=== PATIENT | female | born 1985 | race Caucasian/White ===

== ENCOUNTER → 2019-11-28 07:18 | Outpatient (CLI) | payer OTHER, SELFPAY ==
--- NOTE | ~2019-11-28 | MR_ITS ---
EXAMINATION: MR brain/brain stem wo con DATE: 11/28/2019 07:55 INDICATION: Migraine headache. Flash of light in right eye. TECHNIQUE: Magnetic resonance imaging (MRI) of the brain and brainstem was performed without intraven ous contrast. Sequences included sagittal and axial T1-weighted FSE, axial diffusion-weighted FS EPI, axial T2*-weighted GRE, axial T2-weighted FLAIR Propeller, and axial T2-weighted Propeller. Apparent diffusion coefficient (ADC) maps were created. COMPARISON: Head CTA 03/08/2019 FINDINGS: There is no intracranial hemorrhage, acute infarction, or abnormal intracranial mass lesion . The ventricles are normal in size. The mastoid air cells are normal. The orbits are normal. The par anasal sinuses are clear. IMPRESSION: 1. Normal brain. Reviewed, dictated and finalized at location A. [facility] [employer] IMPRESSION: 1. Normal brain.
== END ==
PROVIDERS: PCP Psychiatry & Neurology Neurology; Visit Provider Psychiatry & Neurology Neurology
DX: G43.909 Migraine, unspecified, not intractable, without status migrainosus (principal)
CPT/HCPCS: 70551

== ENCOUNTER 2019-12-16 09:03 | Outpatient (CLI) | payer OTHER, SELFPAY ==
--- NOTE | 2019-12-16 10:00 | NEURO_ITS ---
TEST: ELECTROENCEPHALOGRAM DIAGNOSIS: MIGRAINES PATIENT NUMBER: [id number] EEG NUMBER: [id number] RECORDING DATE: 12/16/19 CLINICAL HISTORY: Patient reports she is seeing lights and lines in her vision. CONDITION OF RECORDING: Awake, drowsy and sleep EEG DESCRIPTION: Basic resting occipital frequency consists of moderate amount of fairly well organized low voltage 8-10hz alpha mixed with low voltage 15-18hz beta. During drowsiness low voltage beta activity is seen diffusely mixed with waxing and waning posterior alpha rhythms. Bilateral symmetrical sleep activity is seen during sleep. Photic stimulation produced normal drive. Hyperventilation produced normal and symmetrical build-up. Nonparoxysmal. Nonfocal. Nonlateralizing. IMPRESSION: No significant abnormalities noted. MTDD
== END 2019-12-16 09:04 | disposition home or self-care (01) ==
PROVIDERS: PCP Psychiatry & Neurology Neurology; Visit Provider Psychiatry & Neurology Neurology
DX: G43.909 Migraine, unspecified, not intractable, without status migrainosus (principal)
CPT/HCPCS: 95816

== ENCOUNTER 2021-08-21 08:44 | Outpatient (CLI) | payer OTHER, SELFPAY ==
[2021-08-21 09:17] LABS: Hematocrit 36.3 % (37.0-47.0); Hemoglobin 12.6 g/dL (12.0-15.0); Mean Corpuscular HGB Conc 34.7 g/dl (32-36); Mean Corpuscular Hemoglobin 33.2 pg (26-34); Mean Corpuscular Volume 95.8 fl (80-100); Mean Platelet Volume 10.1 fl (7.4-10.4); Platelet Count Result 186 k/mm3 (150-375); Red Blood Count 3.79 M/mm3 (4.2-5.4); Red Cell Distribution Width 12.3 % (11.5-14.5)
[2021-08-23 09:39] LABS: Rapid Plasma Reagin Non-Reactive (NonReactive)
== END 2021-08-21 08:45 | disposition home or self-care (01) ==
LOC: ANHLAB 08:51
PROVIDERS: Visit Provider Obstetrics & Gynecology
DX: Z34.93 Encounter for supervision of normal pregnancy, unspecified, third trimester (principal); Z3A.00 Weeks of gestation of pregnancy not specified
CPT/HCPCS: 36415; 85027; 86592; 86850; 86900; 86901

== ENCOUNTER 2021-08-23 05:38 | Inpatient (IN) | payer OTHER, SELFPAY ==
--- NOTE | 2021-07-27 13:04 | PC.NURSE ---
VERIFIED WITH OR SCHEDULE AND PATIENT --C/S WITH TUBLA LIGATION ON 08/23/21 AT 0730 PATIENT GIVEN REQUISITION FOR PRE-OP LABS ON 08/21/21
[2021-08-23] VITALS (64 sets, daily range): BP systolic 70–128; BP diastolic 41–88; PULSE 50–110; RESP 12–18; TEMP 36.2–37.3; O2SAT 98–100; BMI 25.5
--- NOTE | 2021-08-23 07:10 | WPDANESEPPF ---
Anes - Initial Pre Proc Eval Procedure: Operation Date: 08/23/21 07:30 Proposed Procedures p Primary Section with Bilateral Tubal Ligation - April Buckley MD Date/Time: 08/23/21 07:10 Surgeon: April Buckley MD Pre Op Diagnosis: c/s Patient Data Age: 36 Gender: F Height: 1.7 m Weight: 74 kg Last Vital Signs Pulse 80 08/23/21 06:30 BP 70/41 L 08/23/21 06:30 Pulse Ox 100 08/23/21 06:38 Allergies Allergy/AdvReac Type Severity Reaction Status Date / Time No Known Allergies Allergy Verified 07/27/21 12:53 Patient hx anesthesia problems: none Family hx anesthesia problems: none Results Review: All pre-operative results and documents have been reviewed as part of the pre-operative evaluation. [facility] Past Medical History Medical History (Updated 08/23/21 @ 07:11 by Vincent Cr MD) Anxiety Polyhydramnios Surgical History Surgical History (Updated 08/23/21 @ 07:11 by Vincent Cr MD) History of D&C Family History Family History Other No pertinent family history Social History Social History Smoking status: Never smoker Substance use: never Spiritual care concerns: No Anes - Eval Final PreProcedure Day of Procedure 08/23/21 07:10 Patient weight: normal Heart: regular rate and rhythm Lungs: clear to auscultation Airway: Mallampati scale class 1 Neurological: alert and oriented Last oral intake: >/= 8 hours ASA classification: II Emergent: no Anesthetic plan: proceed Anesthesia type and monitoring: regional spinal and standard monitoring Results Review: All pre-operative results and documents have been reviewed as part of the pre-operative evaluation. Informed Consent: The patient's anesthetic plan and its attendant risks and benefits were discussed with the patient/family/POA. Questions were solicited and answers provided to the satisfaction of the patient/family/POA.
--- NOTE | 2021-08-23 07:14 | PM.IMHP ---
H&P: HPI History of Present Illness Date/Time: 08/23/21 07:14 Chief Complaint: primary CS Narrative: Maryuri is a 36yo at 39w for primary CS for h/o HSV with severe anxiety last related to a vaginal delivery. She has decided not to do a tubal today. also complicated by polyhydramnios and anxiety on lexapro. Started her valtrex just last week. Review of Systems Review of Systems: All systems reviewed & are unremarkable except as noted in HPI and below PMFSH Past Medical History Medical History (Updated 08/23/21 @ 07:11 by Vincent Cr MD) Anxiety Polyhydramnios Surgical History Surgical History (Updated 08/23/21 @ 07:11 by Vincent Cr MD) History of D&C Family History Family History Other No pertinent family history Social History Social History Smoking status: Never smoker Substance use: never Spiritual care concerns: No Meds Home Medications and Allergies Allergies Allergy/AdvReac Type Severity Reaction Status Date / Time No Known Allergies Allergy Verified 07/27/21 12:53 Vital Signs Vital Signs - 24 hr 08/23/21 05:58 08/23/21 06:03 08/23/21 06:08 Pulse Rate Blood Pressure Pulse Oximetry 100 100 100 08/23/21 06:13 08/23/21 06:18 08/23/21 06:23 Pulse Rate Blood Pressure Pulse Oximetry 100 100 99 08/23/21 06:28 08/23/21 06:30 08/23/21 06:33 Pulse Rate 80 Blood Pressure 70/41 L Pulse Oximetry 100 98 08/23/21 06:38 Pulse Rate Blood Pressure Pulse Oximetry 100 Exam Const: General: no acute distress Resp: Effort & Inspection: normal respiratory effort Auscultation: clear to auscultation bilaterally Cardio: Rate: regular rate Rhythm: regular rhythm GI: GI Palp: Yes Soft to palpation Extrem: General: normal to inspection Assessment and Plan Additional Plan Plan primary CS for h/o HSV2 and maternal anxiety re vaginal delivery Discussed RBA, pt consented, all questions answered. NO tubal today. will proceed.
[2021-08-23] MEDS: ceFAZolin 2 GM/D5W 50 ML 2 GM/50 ML BAG IVPB (07:23)
--- NOTE | 2021-08-23 08:22 | P.PCNOB_ITS ---
OB - Delivery Note Procedure Procedure: Procedures Operation Date: 08/23/21 07:30 <No data on this case meets the specified criteria> Primary Low Transverse Section Route of delivery: Specimen: Yes (placenta) Anesthesia type: Epidural Disposition: floor Complications: none Narrative: The patient was taken to the OR and had her epidural anesthesia dosed adequately. She was placed in dorsal supine position with left lateral tilt. SCDs and cui had been placed. She was prepped and draped in the normal sterile fashion. A Pfannensteil skin incision was made and carried through to the underlying layer of fascia. The fascia was incised in the midline and then extended laterally using Alanis scissors. The muscles were in the midline and the peritoneum was entered bluntly. The peritoneal incision was extended inferiorly and superiorly with care to avoid the bladder. The bladder blade was then inserted, the vesicouterine peritoneum was grasped, incised with Metzenbaum scissors, and a bladder flap created. The bladder blade was reinserted. A low transverse uterine incision was made with a scalpel and extended bluntly. AROM was performed and fluid was noted to be clear. The head was delivered, followed by the remainder of the baby. The baby's oropharynx was suctioned. After 30 seconds, the cord was clamped and cut and the infant was handed off. Cord blood was obtained and the placenta was then removed manually. The uterus was exteriorized. A moist lap sponge was used to curette the endometrium. The uterine incision was then closed with one layer of 0-Vicryl in a running, locking fashion. Good hemostasis was noted. The posterior cul de sac was irrigated with normal saline and cleared of all clot and debris. The uterus was returned to the abdomen. Both lateral gutters were then irrigated. The rectus muscles were inspected and found to be hemostatic. The fascia was reapproximated using 0-Vicryl in running fashion. The subcutaneous tissue was irrigated with normal saline and made hemostatic with Bovie electrocautery. The skin was then closed with absorbable gina. Steri strips and a bandage were applied. The uterus was evacuated. The patient tolerated the procedure very well. All counts were correct. She was taken to the recovery room in good condition. [place] Baby Weeks of gestation at delivery: 39
--- NOTE | 2021-08-23 11:02 | PC.NURSE ---
Patient transferred to post room #281 per stretcher from labor and delivery. Support person present. Oriented to unit, room, information board, rooming in, admission packet and security measures. Patient verbalizes understanding.
[2021-08-23] MEDS: DEXTROSE 5%/0.45% SOD CHL 1,000 ML 125 ML IV CONT (11:30)
[2021-08-23] MEDS: KETOROLAC 30 MG/ML VIAL (*BKC) IV PUSH (13:59)
[2021-08-23] MEDS: HYDROcodone/acetaminophen (*CRX) 5-325 MG TABLET 1 TAB PO (17:23)
[2021-08-23] MEDS: ESCITALOPRAM OXALATE 10 MG TABLET 20 MG PO (21:15)
[2021-08-24 00:06] VITALS: PULSE 75; RESP 15; O2SAT 100
[2021-08-24 03:26] VITALS: PULSE 87; RESP 14; O2SAT 99
[2021-08-24] MEDS: IBUPROFEN 600 MG TABLET PO ×3 (03:26→20:38)
[2021-08-24] MEDS: HYDROcodone/acetaminophen (*CRX) 5-325 MG TABLET 1 TAB PO ×4 (03:27→19:28)
[2021-08-24 04:01] LABS: Basophils Percent Auto 0.2 % (0.2-1.2); Eosinophils Percent Auto 0.2 % (0-4.4); Hematocrit 29.5 % (37.0-47.0); Hemoglobin 10.1 g/dL (12.0-15.0); Immature Granulocyte Absolute 0.04 K/mm3 (0.00-0.031); Immature Granulocyte Percent A 0.4 % (0-0.5); Lymphocytes Absolute Auto 1.16 K/mm3 (0.9-3.2); Mean Corpuscular HGB Conc 34.2 g/dl (32-36); Mean Corpuscular Hemoglobin 33.4 pg (26-34); Mean Corpuscular Volume 97.7 fl (80-100); Mean Platelet Volume 10.2 fl (7.4-10.4); Monocytes Absolute Auto 0.5 K/mm3 (0.1-0.6); Monocytes Percent Auto 5.3 % (2.6-8.5); Neutrophils Absolute Auto 7.9 K/mm3 (1.3-6.7); Neutrophils Percent Auto 81.9 % (45.5-73.1); Platelet Count Result 149 k/mm3 (150-375); Red Blood Count 3.02 M/mm3 (4.2-5.4); Red Cell Distribution Width 12.3 % (11.5-14.5); White Blood Count 9.7 K/mm3 (4.5-10.0)
--- NOTE | 2021-08-24 08:01 | P.PNOB_ITS ---
OB - PN: Subj Subjective Date/time seen: 08/24/21 08:01 Patient comments: no complaints, pain well controlled, tolerating diet and flatus present [place] baby status: doing well OB - PN: Obj Data Labs CBC & Chem 7: 08/24/21 03:34 Labs: Laboratory Results - last 24 hr 08/24/21 03:34 WBC 9.7 RBC 3.02 L Hgb 10.1 L Hct 29.5 L MCV 97.7 MCH 33.4 MCHC 34.2 RDW 12.3 Plt Count 149 L MPV 10.2 Immature Gran % (Auto) 0.4 Neut % (Auto) 81.9 H Lymph % (Auto) 12.0 L [place] % (Auto) 5.3 Eos % (Auto) 0.2 Baso % (Auto) 0.2 Lymph # (Auto) 1.16 [place] # (Auto) 0.5 Eos # (Auto) 0.0 Baso # (Auto) 0.0 Abs Immat Gran (auto) 0.04 H Absolute Neuts (auto) 7.9 H Absolute Nucleated RBC 0.0 Nucleated RBC % 0.0 OB - PN A/P Plan day: 1 Plan: routine care Time Spent With Patient Time: Total time spent is greater than 50% in coordination of care (as documented) at patient's floor/unit and/or counseling patient: Time with patient: less than 15 minutes Review of Systems Review of Systems: All systems reviewed & are unremarkable except as noted in HPI and below Exam Narrative: Fundus firm. Vaginal flow controlled. Incision dry and intact. Negative homans. No redness, warmth, or pain of lower ext. Const: General: comfortable Chest: Breast/axilla inspection: normal inspection of the breasts Resp: Effort & Inspection: normal respiratory effort Auscultation: clear to auscultation bilaterally Cardio: Rate: regular rate GI: GI Palp: Yes Soft to palpation Psych: Appearance: grossly normal Affect: normal affect Attitude: cooperative Thought content: Yes Normal thought content present Judgement: Good judgement present (Psych)
--- NOTE | 2021-08-24 09:06 | WPDANLDNPN2 ---
Anes-Prog Note L&D-Neuraxial Date/Time: 08/24/21 09:06 Neuraxial medications: intrathecal PF morphine Opiod-related complaints: none Patient feedback: Patient satisfied with post-operative pain management.
--- NOTE | 2021-08-24 09:06 | WPDANLDPN2 ---
Anes-Prog Note L&D Date/Time: 08/24/21 09:06 Comfortable throughout: section Neuraxial method: spinal Epidural/Spinal procedure site: clean & non-tender Neuro status: Neuro function grossly intact. Cardiovascular status: normal Respiratory status: normal Airway patency: baseline Mental status: baseline Post-Op hydration status: normal Vital Signs: Last Vital Signs Temp 37.3 C 08/23/21 19:10 Pulse 87 08/24/21 03:26 Resp 14 08/24/21 03:26 BP 104/69 08/23/21 19:10 Pulse Ox 99 08/24/21 03:26 Pain score (VAS): 0 I/O: Intake & Output 08/23/21 08/24/21 08/24/21 23:59 07:59 15:59 Intake Total 900 625 Output Total 425 700 Balance 475 -75 Post-procedural complaints: none Patient feedback: Patient satisfied with anesthetic care.
[2021-08-24] MEDS: MULTIVIT/MIN/PREN/FOL AC/IRON TABLET 1 TAB PO (09:21)
[2021-08-24] MEDS: DOCUSATE SODIUM 100 MG CAPSULE PO ×2 (09:21→19:28)
[2021-08-24 09:30] VITALS: BP 118/70; PULSE 96; RESP 18; TEMP 37; O2SAT 100
--- NOTE | 2021-08-24 11:45 | PC.NURSE ---
Mother called out for assist with feeding. Mother reports infant is sleepy at breast needing constant stimulation to keep awake. is able to freely thrust tongue past gum ridge and flange both lips. Skin is intact on both nipples, no redness and bruising noted. Reviewed feeding cues, frequencies, duration of feedings, feeding elimination flow sheet, and signs of adequate intake. Demonstrated stimulation techniques to wake for feeding. Assisted with infant to breast. Reviewed positioning/alignment in cross cradle, holding breast in ?U? hold and guided asymmetrical latch on. Reviewed rational for each. able to latch correctly within a few attempts. Infant nursed sleepily with a few bursts of eager with steady draws and occasional swallowing frequent long pausing noted. Reviewed signs of a correct latch, effective nursing and suck swallow ratio. Suggested mother stimulate while feeding to increase stimulation for milk supply, for increased intake and to assist with maintaining deep latch. Infant would slip to shallow latch causing tenderness. Demonstrated how to adjust latch more deeply while feeding if needed. Mother reports she can feel the difference in latch with less tenderness. Nipple care reviewed of lanolin after feedings, warm compresses as needed. Discussed the difference of effective vs ineffective feeding. Reviewed infant is latching with burst of suckling more sleeping than nursing, he is not feeding consistently with adequate milk transfer at this time and continues to need to be supplement after . Feeding options discussed, Feeding Plan is for mother to put to breast each feeding for up to 15 minutes, then pace feed supplement 20 mls and pump for 10-15 minutes. Parents are comfortable with supplementation and pumping Instructed mother to call out for RN assistance if she is unable to latch infant for feeding or she has discomfort with nursing. Instructed feeding should be initiated three hours from start of last feeding or if feeding cues are noted before. Mother voiced understanding of information shared. Mother states she will begin pumping if does not effectively feed next feeding.
[2021-08-24] MEDS: SIMETHICONE 80 MG TAB.CHEW PO ×2 (14:27→19:28)
--- NOTE | 2021-08-24 14:45 | PC.NURSE ---
Consult with pt., mother wishes to pump due to sleepy . Breast pump provided due to mother's wishes. Instructions given on breast pump care and usage, pumping schedule, nipple care, and collection and storage of breast milk. Encouraged [id number], breast massage and manual expression to stimulate supply. Assessed patient for correct flange size, placement and draw. Patient verbalizes and demonstrates understanding of instructions. Discussed colostrum vs milk supply and mother may not see more than a few drops the first few days, milk should transition in by day 3 and she may see more volume pumped per session.
[2021-08-24] MEDS: ESCITALOPRAM OXALATE 10 MG TABLET 20 MG PO (19:29)
[2021-08-24 19:58] VITALS: BP 102/65; PULSE 65; RESP 18; TEMP 36.8; O2SAT 99
[2021-08-25] MEDS: HYDROcodone/acetaminophen (*CRX) 5-325 MG TABLET 1 TAB PO ×2 (04:54→09:46)
[2021-08-25] MEDS: IBUPROFEN 600 MG TABLET PO ×2 (04:55→11:29)
--- NOTE | 2021-08-25 07:54 | PM.OBPNVD ---
OB - PN: Subj Subjective Date/time seen: 08/25/21 07:54 Patient comments: no complaints and pain well controlled baby status: doing well Combined Locks feeding status: breast and bottle feeding Narrative: Feels great, wants DC home. E/A/V. Normal lochia. OB - PN: Obj Data Labs CBC & Chem 7: 08/24/21 03:34 OB - PN A/P Plan day: 2 Plan: routine care and discharge home Time Spent With Patient Time: Total time spent is greater than 50% in coordination of care (as documented) at patient's floor/unit and/or counseling patient: Exam Narrative: NAD abdomen soft, appropriately tender, incision CDI Extremities nontender with 1+ edema
[2021-08-25 07:55] VITALS: BP 104/68; PULSE 70; RESP 18; TEMP 36.9; O2SAT 99
--- NOTE | 2021-08-25 08:00 | PC.NURSE ---
Patient viewed the discharge video Mother & Baby Care, The First Two Weeks . Patient was given the opportunity and encouraged to ask questions. Patient verbalized understanding of information shared and has been given the mother/baby guide for home reference.
--- NOTE | 2021-08-25 08:02 | PM.OBDSVD ---
DS: Admitting Diagnosis Discharge Date 08/25/21 Admitting Diagnosis term IUP, HSV 2 DS: Discharge Diagnosis Discharge Diagnosis (1) delivery delivered: Code(s): O82 - Encounter for delivery without indication Status: Acute OB - DS: Summary Hospital Course Hospital Course: Pt had an uncomplicated delivery and post course. OB Procedures : Ultrasound OB Procedures Intrapartum: OB Procedures: : None Peripartum Data Delivery Method: Section Procedures: Procedures Operation Date: 08/23/21 07:30 Actual Procedure Side Surgeon p Section April Buckley MD complications: none Status at Discharge Functional status at discharge: independent ambulation Time Spent with Patient Time attestation: Total time spent providing and/or coordinating discharge services: Exam Narrative: NAD abdomen soft, appropriately tender, incision CDI Discharge Plan Discharge Attending physician on discharge: April Buckley Discharging Clinician: April Buckley Anticipated Discharge Date/Time: 08/25/21 11:00 Patient Disposition: Home, Self-Care Activity: may shower, no straining and pelvic rest Diet: regular Patient Instructions: Antibiotic Form Stand Alone Forms: General Discharge Information Follow-up/Referrals: April Buckley MD [Physician] - 1 Week Discharge Medications: New hydrocodone-acetaminophen 5-325 mg Tablet 1 tablet PO Q4-6H PRN (Reason: Moderate Pain (4-6)) Qty: 30 RF: 0 ibuprofen 600 mg Tablet 600 mg PO Q6H PRN (Reason: Cramping) Qty: 60 RF: 1 escitalopram oxalate 10 mg Tablet 20 mg PO HS Qty: 30 RF: 3 Date of admission: 08/23/21 05:38 Admitting Provider: April Buckley Attending physician on admission: April Buckley Condition: Stable
--- NOTE | 2021-08-25 08:15 | PC.NURSE ---
Mother is able to independently latch with appropriate positioning/alignment. She denies any nipple discomfort, is feeding as required and waking infant to feed if needed. Infant has had a few effective feedings all feedings followed with supplementation in the past 24 hours, and is currently meeting outcomes for weight, output, jaundice and feeding frequencies. is more awake and eager to feed today. continues to require supplementation for ineffective feeding. Mother continues to pump without difficulties or discomfort after all feedings due to ineffective feeding. Mother states she feels confident to continue current feeding plan at home. Mother has her own double electric pump for home use. Discussed increasing supplementation as requires to satisfactions. Reviewed paced feeding and suggested to stop when infant is satisfied, as long as infant is having required output. With increased supplementation infant may not want to feed for 4 hours. Mother will continue to pump on infant feeding schedule and will increase session to 20 minutes if pumping every 4 hours. Reviewed once mother?s milk is established and is effectively feeding, infant may have increased intake with nursing. If is effective feeding with long draws and frequent swallowing noted, may be ready to decrease/discontinue supplementation. Advised not to discontinue supplement until ICP, Follow-Up RN or LC has a pre/post weighted evaluation of infant feeding. Mother reports she had low milk supply with last two children, and did not initiate pumping until day 5-7 when infants had weight loss. Stressed the importance of stimulation for milk supply and to continue to supplement until Follow up visit. Reviewed transition to breast milk, signs of adequate intake, and engorgement/relief. Instructed to call ICP if intake/output less than required. Reviewed regular medications mother is taking. Information provided per [facility]. Reviewed community resources on the [facility] website and in the Mom/Baby guide. Information on outpatient services provided. Mother has no further questions at this time.
[2021-08-25] MEDS: DOCUSATE SODIUM 100 MG CAPSULE PO (08:38)
[2021-08-25] MEDS: MULTIVIT/MIN/PREN/FOL AC/IRON TABLET 1 TAB PO (08:38)
[2021-08-26 09:21] VITALS: BP 100/68; PULSE 87; RESP 20; TEMP 37; O2SAT 100
== END 2021-08-25 12:31 | disposition home or self-care (01) | DRG 787 ==
LOC: ANHLDR 05:42 → ANHOB2 11:22
PROVIDERS: Admitting Provider Obstetrics & Gynecology; Visit Provider Obstetrics & Gynecology
PROC: 10D00Z1 Extraction of Products of Conception, Low, Open Approach (ICD-10-PCS; CPT 59514; principal; 2021-08-23 07:30)
DX: O40.3XX0 Polyhydramnios, third trimester, not applicable or unspecified (principal); O98.52 Other viral diseases complicating childbirth; B00.9 Herpesviral infection, unspecified; O99.344 Other mental disorders complicating childbirth; F41.9 Anxiety disorder, unspecified; Z3A.39 39 weeks gestation of pregnancy; Z37.0 Single live birth
CPT/HCPCS: 36415; 85025; A9270; J0131; J0690; J1165; J1885; J2274; J2405; J2590

== ENCOUNTER 2022-09-19 10:31 | Emergency (ER) | payer OTHER, SELFPAY ==
--- NOTE | ~2022-09-19 | XR_ITS ---
XR thoracic spine 3V 09/19/2022 12:35 Indication: Back pain after falling downstairs Procedure: 3 views of the thoracic spine Comparison: No prior studies for comparison. Findings: Vertebral body heights are maintained. Pedicles intact. No acute fracture or traumatic amanda lignment. No paraspinal soft tissue abnormality. Impression: 1: No acute abnormality of the thoracic spine. Reviewed, dictated and finalized at location A. [employer] Impression: 1: No acute abnormality of the thoracic spine.
[2022-09-19 10:32] VITALS: BP 96/68; PULSE 82; RESP 18; TEMP 36.7; O2SAT 100
--- NOTE | 2022-09-19 12:41 | ED.BACK ---
HPI - Back Pain/Injury General Chief Complaint: Back Pain/Injury Stated Complaint: fell down 2 stairs- back pain Time Seen by Provider: 09/19/22 11:32 Source: patient Mode of arrival: ambulatory Limitations: no limitations History of Present Illness HPI Narrative: Patient is a 37 y/o female who presents to the ED with c/o mid thoracic back pain. Patient reports she slipped down her stairs 2 weeks ago and fell with her back landing directly on her two bottom wooden stairs. She states she has severe pain at that time, but was not evaluated. She has had intermittent pain since then, but has not tried taking anything for the pain. She notes having a area of sensitivity to her mid thoracic back and became concerned that she may have caused a tumor to form around her spine from the injury. Patient also reports having a bulge of her lower chest bone that she wants looked at. Patient denied any head injury, LOC, prodromal sx's, chest pain, SOB, lower back pain, bowel or bladder incontinence, numbness, weakness. Related Data Allergies Allergy/AdvReac Type Severity Reaction Status Date / Time No Known Allergies Allergy Verified 09/19/22 11:26 Review of Systems Review of Systems: CONSTITUTIONAL: Denies fever, chills, or sweats. CARDIOPULMONARY: Denies SOB or CP. GASTROINTESTINAL: Denies abdominal pain, nausea, vomiting, bowel/bladder incontinence. SKIN: Reports bulge to lower chest wall. MUSCULOSKELETAL: Reports mid thoracic back pain. NEUROLOGIC: Denies HI, LOC, numbness, or weakness. All systems reviewed & are unremarkable except as noted in HPI and below PMFSH Past Medical History Medical History Anxiety Polyhydramnios Surgical History Surgical History History of D&C Family History Family History Other No pertinent family history Social History Social History Smoking status: Never smoker Substance use: never Spiritual care concerns: No Exam Narrative: GENERAL: Well appearing, thin, non-toxic, in no acute distress. HEAD: Normocephalic, atraumatic. NECK: Supple. No adenopathy, no masses. RESPIRATORY: Airway patent, respirations nonlabored. Clear to auscultation bilaterally, no rales, rhonchi, wheezing. CARDIOVASCULAR: Regular rate and rhythm without murmurs, rubs, or gallops. Peripheral pulses 2+ and equal bilaterally. MUSCULOSKELETAL: Moves all extremities. Strength/ROM intact without gross deformities. Mild tenderness to palpation in lower thoracic midline spine, no palpable bony deformities or step-offs. Bilateral thoracic paraspinal musculature tenderness. No obvious bruising or swelling. No cervical or lumbar midline spinal tenderness. Somewhat prominent xiphoid process, nontender. SKIN: Warm, dry, normal color. No rashes. NEURO: A&O X3. Speech clear. Cranial nerves II-XII grossly intact. Steady gait. No ataxic movements. PSYCHIATRIC: Mildly anxious. Normal interaction. Course Vital Signs Vital signs: Vital Signs Temperature 98.0 F 09/19/22 10:32 Pulse Rate 82 09/19/22 10:32 Respiratory Rate 18 09/19/22 10:32 Blood Pressure 96/68 L 09/19/22 10:32 Pulse Oximetry 100 09/19/22 10:32 Oxygen Delivery Room Air 09/19/22 10:32 Temperature 98.0 F 09/19/22 10:32 Pulse Rate 82 09/19/22 10:32 Respiratory Rate 18 09/19/22 10:32 Blood Pressure 96/68 L 09/19/22 10:32 Pulse Oximetry 100 09/19/22 10:32 Oxygen Delivery Room Air 09/19/22 10:32 MDM - Back Pain/Injury MDM Narrative Medical decision making narrative: Patient presented to ED status post mechanical fall 2 weeks ago with thoracic pain. She has not tried anything for the pain prior to arrival and does not want anything for pain currently. Patient's pain is positional and localized
== END 2022-09-19 13:28 | disposition home or self-care (01) ==
PROVIDERS: Emergency Provider Physician Assistant
DX: S29.9XXA Unspecified injury of thorax, initial encounter (principal); F41.9 Anxiety disorder, unspecified; W10.9XXA Fall (on) (from) unspecified stairs and steps, initial encounter
CPT/HCPCS: 72072; 81025; 99283

== ENCOUNTER 2023-02-01 16:18 | Emergency (ER) | payer OTHER, SELFPAY ==
[2023-02-01 16:25] VITALS: BP 110/68; PULSE 82; RESP 16; TEMP 36.7; O2SAT 99
--- NOTE | 2023-02-01 16:28 | ED.URI ---
HPI - URI/Sore Throat General Chief Complaint: Upper Respiratory Infection Stated Complaint: Cold Symptoms Source: patient and RN notes reviewed History of Present Illness HPI Narrative: 37 yo F presents to urgent care presents with complaints of cold-like symptoms for the last 10 days without any relief. Pt reports sinus pressure and pain, congestion, CHILEL, a slight sore throat, and cough. Denies any fevers, chills, vomiting, chest pain, or SOB. Pt has taken ibuprofen at home without relief. Related Data Home Medications Medication Instructions Recorded Confirmed norethindrone (contraceptive) 0.35 0.35 mg PO DAILY 02/01/23 02/01/23 mg tablet Allergies Allergy/AdvReac Type Severity Reaction Status Date / Time No Known Allergies Allergy Verified 09/19/22 11:26 Review of Systems Review of Systems: Pertinent positives and pertinent negatives per HPI. [facility] Past Medical History Medical History Anxiety Polyhydramnios Surgical History Surgical History History of D&C Family History Family History Other No pertinent family history Social History Social History Smoking status: Never smoker Substance use: never Spiritual care concerns: No Comments At the time of my signature, I reviewed and agree with the nursing past medical, surgical, social, and family history. There is no relevant family history pertinent to the patient complaint. Exam Narrative: GENERAL: This is a well-nourished, well-developed patient, in no apparent distress. HEAD: normocephalic, atraumatic. EYES: Sclera clear/white. Vision is grossly intact. EARS: External ears normal, auditory canals clear and without drainage, TMs normal without perforation. Hearing grossly intact. NOSE:congestion THROAT: Mucous membranes moist, posterior pharynx clear. NECK: Neck supple, non-tender without lymphadenopathy, masses or thyromegaly. CARDIOVASCULAR: Regular rate and rhythm without murmurs, gallops, or rubs. RESPIRATORY: Clear to auscultation. Breath sounds equal bilaterally. No wheezes, rales, or rhonchi. SKIN: warm, intact with no suspicious lesions or rash, good texture and turgor. NEURO: awake, alert, and oriented to person, place and time. There were no obvious focal neurologic abnormalities. Course Course Level of Care: Express Care Visit Vital Signs Vital signs: Vital Signs Temperature 98.1 F 02/01/23 16:25 Pulse Rate 82 02/01/23 16:25 Respiratory Rate 16 02/01/23 16:25 Blood Pressure 110/68 02/01/23 16:25 Pulse Oximetry 99 02/01/23 16:25 Oxygen Delivery Room Air 02/01/23 16:25 Temperature 98.1 F 02/01/23 16:25 Pulse Rate 82 02/01/23 16:25 Respiratory Rate 16 02/01/23 16:25 Blood Pressure 110/68 02/01/23 16:25 Pulse Oximetry 99 02/01/23 16:25 Oxygen Delivery Room Air 02/01/23 16:25 Reviewed MDM - URI/Sore Throat MDM Narrative Medical decision making narrative: Go to the ER for any new or worsening symptoms. Avoid smoking/second-hand smoke. Continue to take Tylenol or Motrin for pain. Increase your Vitamin C intake. Use a humidifier or vaporizer at night. Take Medications as prescribed. Drink plenty of water. 8-10 glasses per day. Use flonase 2 times per day for 5 days then as needed Take mucinex 2 times per day and be sure to take with 8oz of water. Follow up with Primary provider if not getting better. Differential Diagnosis Differential diagnosis: Likely upper respiratory infection, sinusitis and viral infection Critical Care Time Critical Care Time Critical Care Time: No Discharge Plan Discharge Clinical Impression: Sinusitis Qualifiers: Sinusitis location: maxillary Chronicity: acute Recurrence: not specified as recurrent Qual
== END 2023-02-01 16:37 | disposition home or self-care (01) ==
PROVIDERS: Emergency Provider Nurse Practitioner Family
DX: J01.00 Acute maxillary sinusitis, unspecified (principal)
CPT/HCPCS: 99213; G0463

== ENCOUNTER 2024-05-01 12:22 | Outpatient (CLI) | payer OTHER, SELFPAY ==
[2024-05-01 13:04] LABS: Creatine Kinase 51 U/L (30-135)
[2024-05-01 14:11] LABS: Folic Acid 10.6 ng/mL (2.76->20)
[2024-05-03 12:04] LABS: Aldolase 2.4 U/L (< OR = 8.1)
== END 2024-05-01 12:23 | disposition home or self-care (01) ==
LOC: ANHLAB 12:24
PROVIDERS: PCP Family Medicine Sports Medicine; Visit Provider Student in an Organized Health Care Education/Training Program
DX: R25.3 Fasciculation (principal)
CPT/HCPCS: 36415; 82085; 82550; 82607; 82746

== ENCOUNTER 2024-06-26 09:27 | Outpatient (CLI) | payer OTHER, SELFPAY ==
--- NOTE | 2024-06-26 11:00 | NEURO_ITS ---
Impression: # Complains of jumping/twitching of muscles. Question motor neuron disease. # Normal Nerve Conduction Study of upper and lower extremities. # Needle/EMG exam revealed no fibs or fasciculations, also normal motor neuron. # Clinical correlation recommended. Nerve Conduction Studies Anti Sensory Summary Table Stim Site NR Peak (ms) P-T Amp (?V) Site1 Site2 Delta-P (ms) Dist (cm) Denny (m/s) Left Median Anti Sensory (2-3nd Digit) Wrist 3.2 74.4 Wrist 2-3nd Digit 3.2 14.0 44 Wrist 3.2 81.1 Wrist 2-3nd Digit 3.2 14.0 44 Right Median Anti Sensory (2-3nd Digit) Wrist 3.1 60.1 Wrist 2-3nd Digit 3.1 14.0 45 Wrist 3.1 66.4 Wrist 2-3nd Digit 3.1 14.0 45 Left Radial Anti Sensory (Base 1st Digit) Wrist 2.3 21.9 Wrist Base 1st Digit 2.3 0.0 Right Radial Anti Sensory (Base 1st Digit) Wrist 2.7 17.1 Wrist Base 1st Digit 2.7 0.0 Left Sup Fibular Anti Sensory (Ant Lat Mall) 14 cm 3.1 19.3 14 cm Ant Lat Mall 3.1 16.0 52 Right Sup Fibular Anti Sensory (Ant Lat Mall) 14 cm 3.3 25.7 14 cm Ant Lat Mall 3.3 16.0 48 Left Sural Anti Sensory (Lat Mall) Calf 3.5 20.2 Calf Lat Mall 3.5 16.0 46 Right Sural Anti Sensory (Lat Mall) Calf 3.7 23.0 Calf Lat Mall 3.7 16.0 43 Left Ulnar Anti Sensory (5th Digit) Wrist 2.9 75.0 Wrist 5th Digit 2.9 14.0 48 Right Ulnar Anti Sensory (5th Digit) Wrist 2.9 45.0 Wrist 5th Digit 2.9 14.0 48 Motor Summary Table Stim Site NR Onset (ms) O-P Amp (mV) Site1 Site2 Delta-0 (ms) Dist (cm) Denny (m/s) Left Median Motor (Abd Poll Brev) Wrist 3.1 2.9 Elbow Wrist 4.7 28.0 60 Elbow 7.8 5.2 Right Median Motor (Abd Poll Brev) Wrist 3.2 7.3 Elbow Wrist 4.9 29.0 59 Elbow 8.1 3.8 Left Peroneal Motor (Vastus Med) Ankle 4.1 3.4 Popit Ankle 7.9 43.0 54 Popit 12.0 3.1 Right Peroneal Motor (Vastus Med) Ankle 4.3 3.5 Popit Ankle 8.0 39.0 49 Popit 12.3 3.2 Left Tibial Motor (Abd Kowalski Brev) Ankle 4.2 7.4 Knee Ankle 8.4 40.0 48 Knee 12.6 6.9 Right Tibial Motor (Abd Kowalski Brev) Ankle 4.4 10.3 Knee Ankle 8.4 43.0 51 Knee 12.8 8.8 Left Ulnar Motor (Abd Dig Minimi) Wrist 3.0 7.6 A Elbow Wrist 4.6 28.0 61 A Elbow 7.6 7.3 Right Ulnar Motor (Abd Dig Minimi) Wrist 3.2 5.1 A Elbow Wrist 4.8 28.0 58 A Elbow 8.0 4.8 F Wave Studies NR F-Lat (ms) L-R F-Lat (ms) Left Median (Mrkrs) (Abd Poll Brev) 28.15 0.70 Right Median (Mrkrs) (Abd Poll Brev) 28.85 0.70 Left Peroneal (Mrkrs) (EDB) 50.16 0.67 Right Peroneal (Mrkrs) (EDB) 49.49 0.67 Left Tibial (Mrkrs) (Abd Hallucis) 51.13 0.33 Right Tibial (Mrkrs) (Abd Hallucis) 50.79 0.33 Left Ulnar (Mrkrs) (Abd Dig Min) 27.21 1.74 Right Ulnar (Mrkrs) (Abd Dig Min) 28.95 1.74 EMG Side Muscle Nerve Root Ins Act Fibs Amp Dur Recrt Comment Right 1stDorInt Ulnar C8-T1 Nml Nml Nml Nml Nml Right Ext Indicis Radial (Post Int) C7-8 Nml Nml Nml Nml Nml Right Ext Digitorum Radial (Post Int) C7-8 Nml Nml Nml Nml Nml Right BrachioRad Radial C5-6 Nml Nml Nml Nml Nml Right PronatorTeres Median C6-7 Nml Nml Nml Nml Nml Right Abd Poll Brev Median C8-T1 Nml Nml Nml Nml Nml Right ABD Dig Min Ulnar C8-
== END 2024-06-26 09:28 | disposition home or self-care (01) ==
LOC: ANHNEURO 09:29
PROVIDERS: Visit Provider Student in an Organized Health Care Education/Training Program
DX: R25.3 Fasciculation (principal)
CPT/HCPCS: 95886; 95913